=== PATIENT | female | born 1990 | race Two or more races ===

== ENCOUNTER 2018-10-13 18:41 | Emergency (ER) | payer OTHER ==
[~2018-10-13] VITALS: Ht 160 cm; Wt 54.4 kg
[2018-10-13] MEDS ORDERED: MIRE1IUD IU (18:49)
[2018-10-13 19:34] LABS: BASO % 0.4 % (0.0-1.0); EOS # 0.1 10^3/uL (0.0-0.50); EOS % 1.6 % (0.0-3.0); HEMATOCRIT 43.1 % (36.0-47.0); HEMOGLOBIN 14.6 g/dl (12.0-15.5); LYMPH # 1.8 10^3/uL (1.5-6.5); MEAN CORPUSCULAR HEMOGLOBIN 30.2 pg (27.0-33.0); MEAN CORPUSCULAR HGB CONC 33.9 g/dl (32.0-36.5); MEAN CORPUSCULAR VOLUME 89.2 fl (80.0-96.0); MONO # 0.5 10^3/uL (0.0-0.8); MONO % 6.8 % (0.0-5.0); NEUTROPHILS # 4.9 10^3/uL (1.8-7.7); NEUTROPHILS % 66.9 % (36.0-66.0); PLATELET COUNT, AUTOMATED 267 10^3/uL (150-450); RED BLOOD COUNT 4.83 10^6/uL (4.00-5.40); WHITE BLOOD COUNT 7.4 10^3/uL (4.0-10.0)
[2018-10-13 19:47] LABS: INR 1.01; PARTIAL THROMBOPLASTIN TIME 28.2 SECONDS (25.4-37.6); PROTHROMBIN TIME 13.4 SECONDS (12.1-14.4)
[2018-10-13 19:51] LABS: HCG, SERUM QUALITATIVE NEGATIVE (NEGATIVE)
[2018-10-13 19:52] LABS: MONO SCRN NEGATIVE (NEGATIVE)
[2018-10-13 20:05] LABS: ALBUMIN 4.3 GM/DL (3.2-5.2); ALT/SGPT 21 U/L (12-78); BILIRUBIN,DIRECT 0.1 MG/DL (0.0-0.2); BILIRUBIN,TOTAL 0.4 MG/DL (0.2-1.0); BLOOD UREA NITROGEN 18 MG/DL (7-18); C REACTIVE PROTEIN QUANTITATIV < 0.30 MG/DL (0.00-0.30); CALCIUM LEVEL 8.9 MG/DL (8.5-10.1); CARBON DIOXIDE LEVEL 28 MEQ/L (21-32); CHLORIDE LEVEL 105 MEQ/L (98-107); CPK CREATINE PHOSPHOKINASE 209 U/L (26-192); CREATININE FOR GFR 0.75 MG/DL (0.55-1.30); FREE T4 1.13 NG/DL (0.76-1.46); GLOMERULAR FILTRATION RATE > 60.0 (>60); GLUCOSE, FASTING 83 MG/DL (70-100); MB/CK RELATIVE INDEX 0.77 (< OR =4); POTASSIUM SERUM 3.7 MEQ/L (3.5-5.1); SODIUM LEVEL 137 MEQ/L (136-145); TROPONIN I < 0.02 NG/ML (< 0.10)
[2018-10-13] MEDS ORDERED: ISOVUE-370 76% 100ML VIAL (Q9967) As Ordered ONE (20:08)
[2018-10-13 20:13] LABS: ERYTHROCYTE SEDIMENTATION RATE 2 mm/hr (0-20)
[2018-10-13] MEDS ORDERED: NS 1,000 ML IV ONE (20:45)
--- NOTE | 2018-10-13 21:11 | REPVR ---
EXAM: CT Angiography Chest With Contrast EXAM DATE/TIME: 10/13/2018 8:23 PM CLINICAL HISTORY: 28 years old, female; Chest pain; Additional info: Chestpains/hx of pe TECHNIQUE: Imaging protocol: Axial computed tomographic angiography images of the chest with intravenous contrast using CT angiography protocol. Coronal and sagittal reformatted images were created and reviewed. 3D rendering: MIP reconstructed images were created and reviewed. Radiation optimization: All CT scans at this facility use at least one of these dose optimization techniques: automated exposure control; mA and/or kV adjustment per patient size (includes targeted exams where dose is matched to clinical indication); or iterative reconstruction. Contrast material: ISOVUE 370; Contrast volume: 75 ml; Contrast route: IV; COMPARISON: No relevant prior studies available. FINDINGS: Pulmonary arteries: Normal. No pulmonary emboli. Aorta: Normal. No aortic aneurysm. No aortic dissection. Lungs: Normal. No consolidation. No masses. Pleural space: Normal. No pneumothorax. No pleural effusion. Heart: Normal. No cardiomegaly. No pericardial effusion. Lymph nodes: Unremarkable. No enlarged lymph nodes. Bones/joints: Unremarkable. No acute fracture. Soft tissues: Unremarkable. IMPRESSION: No acute findings. Electronically signed by: Kalyan Delgado On 10/13/2018 21:10:20 PM
[2018-10-13 21:51] VITALS: BP 108/65
--- NOTE | 2018-10-14 21:10 | ECGEPIP ---
Stationary ECG Study [facility] - ED Test Date: 2018-10-13 Pat Name: HANNAH MC Department: Room: - Gender: F Clinical Pharmacy Coordinator: : 1990 Requested By: DARIELA MERCADO PA-C Order Number: [id number] Reading MD: Ramona Emery Measurements Intervals [place] Rate: 59 P: -12 [place]: 153 QRS: -28 QRSD: 87 T: 16 QT: 392 QTc: 391 Interpretive Statements SINUS BRADYCARDIA BORDERLINE LEFT AXIS DEVIATION NO PRIOR FOR COMPARISON Electronically Signed On 10-14-2018 21:10:23 EDT by Ramona Emery
== END 2018-10-13 22:40 | disposition home or self-care (01) ==
LOC: M ED 18:41
DX: R07.89 Other chest pain (principal); R74.8 Abnormal levels of other serum enzymes; R23.3 Spontaneous ecchymoses; R00.1 Bradycardia, unspecified; J45.909 Unspecified asthma, uncomplicated; Z86.711 Personal history of pulmonary embolism; Z79.3 Long term (current) use of hormonal contraceptives
CPT/HCPCS: 36415; 71275; 80048; 80076; 82550; 82553; 84439; 84443; 84484; 84703; 85025; 85610; 85652; 85730; 86140; 86308; 93005; 96360; 96361; 99284; Q9967